=== PATIENT | female | born 2005 | race Caucasian/White ===

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

== ENCOUNTER → 2023-06-02 | Outpatient (REF) | payer SELFPAY ==
[2023-06-02 16:37] LABS: BACTERIA, URINE AUTO 3+ (NEGATIVE); MUCUS, URINE SMALL (NEGATIVE); RBC, URINE AUTO 1 /HPF (0-3); SQUAMOUS EPITHELIAL CELL UR AU 6 /HPF (0-6); WBC, URINE AUTO 67 /HPF (0-3)
== END ==
LOC: M LAB REF 16:01
PROVIDERS: ATTEND Internal Medicine
DX: N30.00 Acute cystitis without hematuria (principal)

== ENCOUNTER → 2024-07-27 | Outpatient (REF) | payer OTHER ==
[2024-07-27 16:43] LABS: APPEARANCE, URINE HAZY (CLEAR); BACTERIA, URINE AUTO 1+ (NEGATIVE); BILIRUBIN, URINE AUTO NEGATIVE (NEGATIVE); BLOOD, URINE BLOOD 1+ (NEGATIVE); COLOR, URINE YELLOW (YELLOW); GLUCOSE, URINE (UA) AUTO NEGATIVE (NEGATIVE); KETONE, URINE AUTO NEGATIVE (NEGATIVE); LEUKOCYTE ESTERASE, URINE AUTO NEGATIVE (NEGATIVE); MUCUS, URINE SMALL (NEGATIVE); NITRITE, URINE AUTO NEGATIVE (NEGATIVE); PROTEIN, URINE AUTO NEGATIVE (NEGATIVE); RBC, URINE AUTO 5 /HPF (0-3); SPECIFIC GRAVITY URINE AUTO 1.013 (1.002-1.035); SQUAMOUS EPITHELIAL CELL UR AU 12 /HPF (0-6); UROBILINOGEN, URINE AUTO 0.2 mg/dL (0.0-2.0); WBC, URINE AUTO 2 /HPF (0-3)
== END ==
LOC: M LAB REF 16:16
PROVIDERS: ATTEND Physician Assistant Medical
DX: N39.0 Urinary tract infection, site not specified (principal)